=== PATIENT | female | born 1995 | race Caucasian/White ===

== ENCOUNTER 2024-08-10 09:27 | Emergency (ER) | payer OTHER ==
[2024-08-10 09:31] VITALS: BP 107/73; PULSE 77; RESP 16; TEMP 98.6; BMI 26.0
[2024-08-10] MEDS ORDERED: ACETAMINOPHEN INJECTION 100 ML ONE (10:22)
[2024-08-10 10:32] LABS: BASO % 0.4 % (0-2.0); EOS % 1.2 % (0-4.5); HEMOGLOBIN 12.9 GM/dL (10.7-15.3); LYMPH % 28.9 % (8-40); MCH 29.9 pg (25.7-33.7); MCHC 33.1 g/dl (32.0-36.0); MEAN CELL VOLUME 90.2 fl (80-96); MEAN PLT VOLUME 6.8 fl (7.5-11.1); MONO % 7.1 % (3.8-10.2); NEUT % 62.4 % (42.8-82.8); PLATELET COUNT 226 10^3/uL (134-434); RBC 4.32 M/mm3 (3.60-5.2); RDW 14.2 % (11.6-15.6); WHITE BLOOD COUNT 7.3 K/mm3 (4.0-10.0)
[2024-08-10 10:38] LABS: EPI CELLS 12 /uL (0-25.1); HYALINE CASTS 0 /uL (0-3.1); PH,URINE 6.5 (5.0-8.0); URINE APPEARANCE CLEAR; URINE BACTERIA 426 /uL (0-1359); URINE BILIRUBIN NEGATIVE (NEGATIVE); URINE COLOR YELLOW; URINE GLUCOSE (UA) NEGATIVE (NEGATIVE); URINE KETONE NEGATIVE (NEGATIVE); URINE LEUK ESTERASE 1+ (NEGATIVE); URINE NITRITE NEGATIVE (NEGATIVE); URINE PROTEIN NEGATIVE (NEGATIVE); URINE RBC 4 /uL (0-23.9); URINE UROBILINOGEN 0.2 mg/dL (0.2-1.0); URINE WBC 31 /uL (0-25.8)
[2024-08-10] MEDS: ACETAMINOPHEN 1000 MG/100 ML BAG IVPB ONE (10:41)
[2024-08-10] MEDS: SODIUM CHLORIDE 1,000 ML IV STA (10:42)
[2024-08-10 10:45] LABS: INR 1.03 (0.83-1.09); PROTHROMBIN TIME (PATIENT) 11.6 SEC (9.7-13.0)
[2024-08-10 10:59] LABS: POTASSIUM 3.8 mmol/L (3.5-5.1)
[2024-08-10 11:01] LABS: ALBUMIN 3.6 g/dl (3.4-5.0); BLOOD UREA NITROGEN 10.6 mg/dL (7-18); CALCIUM 9.2 mg/dL (8.5-10.1)
[2024-08-10 11:04] LABS: CREATININE 0.5 mg/dL (0.55-1.3)
[2024-08-10 11:06] LABS: BILIRUBIN,TOTAL 0.3 mg/dL (0.2-1); TOT PROT 6.6 g/dl (6.4-8.2)
[2024-08-10] MEDS ORDERED: KETOROLAC TROMETHAMINE 15 MG/ML VIAL ONE (11:21)
[2024-08-10] MEDS: KETOROLAC TROMETHAMINE 15 MG/ML VIAL IVPUSH ONE (11:49)
[2024-08-10 12:01] LABS: HIV INTERPRETATION NEGATIVE (NEGATIVE)
[2024-08-10] MEDS ORDERED: CEFTRIAXONE 1 GM/50 ML BAG ONE (13:16)
[2024-08-10] MEDS: CEFTRIAXONE 1,000 MG in DEXTROSE 5%-WATER - 50 ML IVPB ONE (13:22)
== END 2024-08-10 14:35 | disposition home or self-care (01) ==
LOC: JER 09:27
DX: N12 Tubulo-interstitial nephritis, not specified as acute or chronic (principal); M54.50 Low back pain, unspecified; R05.9 Cough, unspecified
CPT/HCPCS: 36415; 74177-TC; 80053; 81003; 84703; 85025; 85610; 86803; 86850; 86900; 86901; 87086; 87389; 99285-25; J0131; Q9967